=== PATIENT | male | born 1995 | race Caucasian/White ===

== ENCOUNTER 2020-04-02 19:07 | Emergency (ER) | payer OTHER ==
[2020-04-02 19:13] VITALS: BP 136/91; PULSE 84; TEMP 98; BMI 28.0
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
== END 2020-04-02 21:22 | disposition home or self-care (01) ==
LOC: FER 19:07
DX: Z77.21 Contact with and (suspected) exposure to potentially hazardous body fluids (principal)
CPT/HCPCS: 99282-25

== ENCOUNTER 2020-04-09 20:14 | Emergency (ER) | payer OTHER ==
[2020-04-09 20:20] VITALS: BP 129/92; PULSE 90; TEMP 98.6; BMI 28.0
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
== END 2020-04-09 20:30 | disposition home or self-care (01) ==
LOC: FER 20:14
DX: S80.212A Abrasion, left knee, initial encounter (principal); R68.84 Jaw pain; M25.561 Pain in right knee
CPT/HCPCS: 99283-25

== ENCOUNTER 2020-05-19 17:12 | Emergency (ER) | payer OTHER ==
[2020-05-19 17:24] VITALS: BP 125/79; PULSE 80; TEMP 98.7; BMI 25.0
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
== END 2020-05-19 17:40 | disposition home or self-care (01) ==
LOC: FER 17:12
DX: Z77.21 Contact with and (suspected) exposure to potentially hazardous body fluids (principal)
CPT/HCPCS: 99281-25

== ENCOUNTER 2020-12-11 19:55 | Emergency (ER) | payer OTHER ==
[2020-12-11 20:12] VITALS: BP 125/78; PULSE 76; TEMP 98.1; BMI 27.6
== END 2020-12-11 21:11 | disposition home or self-care (01) ==
LOC: FER 19:55
DX: S46.911A Strain of unspecified muscle, fascia and tendon at shoulder and upper arm level, right arm, initial encounter (principal); S60.221A Contusion of right hand, initial encounter; S80.01XA Contusion of right knee, initial encounter; Y04.8XXA Assault by other bodily force, initial encounter
CPT/HCPCS: 99282-25

== ENCOUNTER 2022-02-20 15:39 | Emergency (ER) | payer OTHER ==
[2022-02-20 15:47] VITALS: BP 133/83; PULSE 80; TEMP 98.3; BMI 26.3
[2022-02-20] MEDS ORDERED: IBUPROFEN 600 MG TABLET (FP) PO ONE ×2 (15:55→16:00)
== END 2022-02-20 16:25 | disposition home or self-care (01) ==
LOC: FER 15:39
DX: M25.512 Pain in left shoulder (principal); V43.52XA Car driver injured in collision with other type car in traffic accident, initial encounter
CPT/HCPCS: 99283-25